=== PATIENT | male | born 1960 | race Caucasian/White ===

== ENCOUNTER → 2023-12-08 | Outpatient (CLI) | payer OTHER ==
[2023-12-08 14:16] LABS: Source, Urine Clean Catch
[2023-12-08 14:42] LABS: Bilirubin, Urine Neg (Neg); Glucose Qualitative, Urine Neg (Normal); Ketones, Urine 1+ (Neg); Leukocyte Esterase, Urine 2+ (Neg); Nitrite, Urine Pos (Neg); Protein, Urine Neg (Neg); Specific Gravity, Urine 1.015 (1.003-1.022); Urobilinogen, Urine NORM (Normal)
[2023-12-08 14:43] LABS: Appearance, Urine Cloudy (Clear); Bacteria Many /hpf; Blood, Urine 1+ (Neg); Color, Urine Yellow (P-Yellow); Squamous Epithelial Cells Not Seen /hpf (Few); White Blood Cells, Urine 25-50 /hpf (0-5)
== END ==
LOC: LAB SHORT 07:45 → LAB 07:45
PROVIDERS: Physician Assistant
DX: N39.0 Urinary tract infection, site not specified (principal)
CPT/HCPCS: 81001; 87077; 87086; 87186

== ENCOUNTER → 2024-11-01 | Outpatient (CLI) | payer MEDICARE, BC ==
[2024-11-01 14:30] LABS: Source, Urine Clean Catch
[2024-11-01 16:14] LABS: Appearance, Urine Hazy (Clear); Bilirubin, Urine Neg (Neg); Blood, Urine 2+ (Neg); Color, Urine Yellow (P-Yellow); Glucose Qualitative, Urine Neg (Neg); Ketones, Urine Neg (Neg); Leukocyte Esterase, Urine 3+ (Neg); Nitrite, Urine Neg (Neg); Protein, Urine Neg (Neg); Specific Gravity, Urine 1.015 (1.003-1.022); Urobilinogen, Urine NORM (Normal)
[2024-11-01 16:30] LABS: Bacteria Many /hpf; Red Blood Cells, Urine 0-2 /hpf (0-2); Squamous Epithelial Cells Rare /hpf (Few); White Blood Cells, Urine 50-100 /hpf (0-5)
== END ==
LOC: LAB SHORT 14:23 → LAB 14:23 → LAB FUT 12-08 12:25
PROVIDERS: Student in an Organized Health Care Education/Training Program
DX: N39.0 Urinary tract infection, site not specified (principal)
CPT/HCPCS: 81001; 87077; 87086; 87186

== ENCOUNTER → 2025-05-23 | Outpatient (CLI) | payer MEDICARE, BC ==
[2025-05-23 07:54] LABS: Source, Urine Clean Catch
[2025-05-23 08:17] LABS: Glucose Qualitative, Urine Neg (Normal); Ketones, Urine Neg (Neg); Leukocyte Esterase, Urine 2+ (Neg); Protein, Urine Neg (Neg); Specific Gravity, Urine 1.010 (1.003-1.022)
[2025-05-23 08:18] LABS: Bilirubin, Urine Neg (Neg); Color, Urine Yellow (P-Yellow); Urobilinogen, Urine NORM (Normal); White Blood Cells, Urine 25-50 /hpf (0-5)
== END ==
LOC: LAB SHORT 07:48 → LAB 07:48 → EDSTATUS 06-02 17:10 → LAB FUT 06-02 17:10
PROVIDERS: Physician Assistant Medical
DX: N39.0 Urinary tract infection, site not specified (principal)
CPT/HCPCS: 81001; 87077; 87086; 87186

== ENCOUNTER → 2025-08-12 | Outpatient (CLI) | payer MEDICARE, BC ==
[2025-08-12 14:22] LABS: Source, Urine Foley catheter
[2025-08-12 16:14] LABS: Bilirubin, Urine Neg (Neg); Color, Urine Yellow (P-Yellow); Glucose Qualitative, Urine Neg (Neg); Ketones, Urine Neg (Neg); Leukocyte Esterase, Urine 1+ (Neg); Protein, Urine 1+ (Neg); Specific Gravity, Urine 1.015 (1.003-1.022); Urobilinogen, Urine 1+ (Normal)
== END ==
LOC: LAB 14:13 → LAB SHORT 14:13
PROVIDERS: Urology
DX: N39.0 Urinary tract infection, site not specified (principal)
CPT/HCPCS: 81001; 87077; 87086; 87147; 87186

== ENCOUNTER → 2025-09-11 | Outpatient (CLI) | payer MEDICARE, BC ==
[2025-09-11 11:39] LABS: Source, Urine Clean Catch
[2025-09-11 14:56] LABS: Bilirubin, Urine Neg (Neg); Color, Urine Yellow (P-Yellow); Glucose Qualitative, Urine Neg (Neg); Ketones, Urine Neg (Neg); Leukocyte Esterase, Urine 3+ (Neg); Protein, Urine 1+ (Neg); Specific Gravity, Urine 1.005 (1.003-1.022); Urobilinogen, Urine NORM (Normal)
[2025-09-11 15:08] LABS: White Blood Cells, Urine 50-100 /hpf (0-5)
== END ==
LOC: LAB SHORT 11:07 → LAB 11:07
PROVIDERS: Urology
DX: N39.0 Urinary tract infection, site not specified (principal)
CPT/HCPCS: 81001; 87077; 87086; 87186